=== PATIENT | male | born 2005 | race Hispanic/Latino ===

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

== ENCOUNTER 2025-10-14 19:30 | Emergency (ER) | payer BC, MEDICAID ==
[~2025-10-14] VITALS: Ht 172.7 cm; Wt 80.7 kg
--- NOTE | 2025-10-14 20:03 | ERN ---
ED Note History of Present Illness Stated Complaint: ABD PAIN, VOMITING, GBW, FEVER Chief Complaint: Sepsis Time Seen by MD: 19:33 Dictation: Patient is a 20-year-old with a past medical history asthma who presented to the ER complaining of not feeling well since to this morning, reports lower abdominal pain, tingling sensation to his foot bilateral. He also states that abdominal pain got worse when he laid down. Allergies: Coded Allergies: No Known Allergies (Unverified Allergy, Unknown, 10/04/21) Home Meds Active Scripts Ibuprofen (Ibuprofen) 400 Mg Tablet, 1 TAB PO TID for pain or fever for 20 Days, #15 TAB 0 Refills Prov:FRANCISCO HORNE MD 10/14/25 Acetaminophen (Tylenol) 325 Mg Tablet, 1-2 TAB PO QIDP PRN for pain or fever for 7 Days, #20 TAB 0 Refills Prov:FRANCISCO HORNE MD 10/14/25 Past Medical History Past Medical History: Asthma Surgical History: None Social History: Other Review of System Dictation NEGATIVE EXCEPT PER HPI Constitutional: Negative for fever,chills, and weight loss Eyes: Negative for injury, pain,redness, and discharge ENT: Negative for injury,pain or swelling Cardiovascular: denies chest pain, palpitations, and edema Respiratory: Negative for shortness of breath, cough, and wheezing, Abdomen/GI: Bilateral lower abdominal pain Back: Negative for injury and pain : Negative for injury, bleeding and discharge MS/Extremity: Negative for injury and deformity Skin: Negative for rash, and discoloration Neuro: Bilateral foot tingling Psych: Negative for suicide ideation, homicidal ideation, and hallucinations Initial Vital Sign VS Vital Signs Date Time Temp Pulse Resp B/P (MAP) Pulse Ox O2 Delivery O2 Flow Rate FiO2 10/14/25 19:31 100.2 106 26 122/75 99 Room Air 10/14/25 19:50 0 21 Physical Exam Dictation General: awake, alert, NAD Head/Face: Normocephalic, atraumatic Eyes: PERRL, EOMI, vision at baseline ENT: oral cavity clear, TMs clear, no signs of infection Neck: Trachea midline, supple, no nuchal rigidity Cardiovascular: RRR, normal S1/S2, No MRGs, no JVD Respiratory: CTAB, no respiratory distress, No rales or wheezes Abdomen: Soft , no tender Skin: Warm, dry, normal turgor, no rash MS/Extremity: Pulses equal, no cyanosis, neurovascular intact, FROM Neuro: COAx4, GCS 15, strength 5/5, CN 2-12 intact, normal cerebellar exam, normal gait, Psych: Normal behavior, mood, and affect normal Results (Laboratory/Radiology) Laboratory/Radiology Laboratory Tests Test 10/14/25 19:47 10/14/25 19:54 White Blood Count 13.6 K/uL (4.8-10.8) H Red Blood Count 5.61 MIL/uL (4.50-6.20) Hemoglobin 16.0 g/dL (14.0-18.0) Hematocrit 46.9 % (42-54) Mean Corpuscular Volume 83.6 fL (80-100) Mean Corpuscular Hemoglobin 28.5 pg (27.0-33.0) Mean Corpuscular Hemoglobin Concent 34.1 g/dL (32.0-36.0) Red Cell Distribution Width 12.3 % (11.0-15.5) Platelet Count 149 K/uL (130-400) Mean Platelet Volume 10.9 fL (7.5-10.5) H Immature Granulocyte % (Auto) 0.3 % (0-1) Neutrophils (%) (Auto) 93.0 % (40.0-77.0) H Lymphocytes (%) (Auto) 2.3 % (21.0-51.0) L Monocytes (%) (Auto) 3.7 % (3.0-13.0) Eosinophils (%) (Auto) 0.4 % (0.0-8.0) Basophils (%) (Auto) 0.3 % (0.0-5.0) Neutrophils # (Auto) 12.7 K/uL (1.8-7.7) H Lymphocytes # (Auto) 0.3 K/uL (1.0-4.8) L Monocytes # (Auto) 0.5 K/uL (0.1-1.0) Eosinophils # (Auto) 0.05 K/uL (0.00-0.70) Basophils # (Auto) 0.04 K/uL (0.00-0.20) Absolute Immature Granulocyte (auto 0.04 K/uL (0-1) Nucleated Red Blood Cells 0.0 % (0.0-0.19) White Cell Morphology Comment See comments Sodium Level 136 mmol/L (136-145) Potassium Level 3.8 mmol/L (3.5-5.1) Chloride Level 101 mmol/L (101-111) Carbon Dioxide Level 23 mmol/L (21-32) Blood Urea Nitrogen 17 mg/dL (7-18) Creatinine 1.1 mg/dL (0.5-1.3) Glomerular Filtration Rate Calc 99 mL/min (>90) Random Glucose 126 mg/dL (70-105) H Lactic Acid Level 2.5 mmol/L (0.8-2.5) Total Calcium 9.5 mg/dL (8.5-10.1) Total Creatine Kinase 845 U/L (21-232) *H Troponin I High Sensitivity < 4 ng/L (4-75) L Urine Color YELLOW (YELLOW) Urine Appearance CLEAR (CLEAR) Urine pH 6.0 (5.0-8.0) Urine Specific [place] 1.031 (1.001-1.031) Urine Protein NEGATIVE mg/dL (NEGATIVE) Urine Glucose (UA) NEGATIVE mg/dL (NEGATIVE) Urine Ketones 100 mg/dL (NEGATIVE) H Urine Occult Blood NEGATIVE (NEGATIVE) Urine Nitrate NEGATIVE (NEGATIVE) Urine Bilirubin NEGATIVE mg/dL (NEGATIVE) Urine Urobilinogen 0.2 mg/dL (0.2-1.0) Urine Leukocyte Esterase NEGATIVE Vivek/uL Urine RBC 0-1 /HPF (0-1) Urine WBC 2-5 /HPF (0-1) H Urine Bacteria None /HPF (None Seen) Influenza Type A Antigen Negative For Type A Influenza Type B Antigen Negative For Type B SARS-CoV-2 Antigen (Rapid) PRESUMPTIVE NEGATIVE ED Course ED Course Orders Procedure Category Date Status Time Iv Insertion CPOE 10/14/25 Transmitted 19:43 Pulse Ox(Continuous) RT 10/14/25 Transmitted 19:43 Vital Signs Per CPOE 10/14/25 Transmitted Routine 19:43 12 Lead Ekg Tracing- EKG 10/14/25 Complete Technical 19:43 Cbc With Differential LAB 10/14/25 Complete 19:43 Blood Cult KAITLIN 10/14/25 In Process 19:43 Urinalysis Profile LAB 10/14/25 Complete 19:43 Culture Urine KAITLIN 10/14/25 In Process 19:43 Creatine Kinase, Total LAB 10/14/25 Complete 19:43 Troponin I High LAB 10/14/25 Complete Sensitivity 19:43 Lactic Acid LAB 10/14/25 Complete 19:43 Basic Metabolic Panel LAB 10/14/25 Complete 19:43 0.9%Nacl 1000ml (Ns PHA 10/14/25 Complete 1000ml) 20:00 Influenza Type A & B, LAB 10/14/25 Complete Rapid 19:44 Covid19 (Sars Antigen LAB 10/14/25 Complete Rapid) 19:44 Chest 1vw RAD 10/14/25 Resulted 19:44 Ceftriaxone 1g Vial PHA 10/14/25 Complete (Rocephine 1g Inj) 20:00 Ct Abdomen/Pelvis CT 10/14/25 Resulted W/Contrast 20:03 Ketorolac PHA 10/14/25 Complete Tromethamine 15mg/Ml 20:30 Iohexol (Omnipaque) PHA 10/14/25 Complete 21:38 Lactic Acid (Removed) LAB 10/14/25 Logged 23:17 Current Medications Medications (Trade) Dose Ordered Sig/Nasreen Route PRN Reason Start Time Stop Time Status Last Admin Dose Admin Ceftriaxone Sodium (ROCEphine 1G INJ) 1 gm ONCE ONCE IVPB 10/14/25 20:00 10/14/25 20:01 DC 10/14/25 20:14 Iohexol (Omnipaque) 75 ml STK-MED ONCE IV 10/14/25 21:38 10/14/25 21:39 DC Ketorolac Tromethamine (toRADol) 15 mg ONCE ONCE IV 10/14/25 20:30 10/14/25 20:31 DC 10/14/25 20:58 Sodium Chloride 2,052 ml @ 684 mls/hr ONCE ONCE IV 10/14/25 20:00 10/14/25 22:59 DC 10/14/25 20:14 Vital Signs Date Time Temp Pulse Resp B/P (MAP) Pulse Ox O2 Delivery O2 Flow Rate FiO2 10/14/25 22:04 96 16 110/71 100 Room Air* 0 21 10/14/25 21:15 100 20 113/76 100 Room Air* 0 21 10/14/25 19:50 100.8 92 22 122/81 100 Room Air* 0 21 10/14/25 19:31 100.2 106 26 122/75 99 Room Air Medical Decision Making MDM 20-year-old male who presented with abdominal pain, not feeling well. Initial vital signs was remarkable for tachycardia with a heart rate above 100 temperature 100.2. Code sepsis was activated. Sepsis protocol started CT abdomen and pelvis ordered Chest x-ray ordered Ceftriaxone 1 g given. Chest x-ray within normal limits negative for pneumonia CT imaging abdomen and pelvis within normal limits negative for cholecystitis, appendicitis, planning patient vital signs improved. He is afebrile. Likely patient diagnosis viral syndrome . He does have elevation of CK level 800s, patient has been working out lately. Recommended the patient to rest, drink plenty amount of food to keep hydrated. DX & DISP Disposition: Discharge Departure Impression: Primary Impression: Acute viral syndrome Condition: Improved Scripts Ibuprofen (Ibuprofen) 400 Mg Tablet 1 TAB PO TID for pain or fever for 20 Days, #15 TAB 0 Refills Prov: FRANCISCO HORNE MD 10/14/25 Acetaminophen (Tylenol) 325 Mg Tablet 1-2 TAB PO QIDP PRN for pain or fever for 7 Days, #20 TAB 0 Refills Prov: FRANCISCO HORNE MD 10/14/25 Additional Instructions: RETURN TO ER FOR ANY ACUTE OR WORSENING SYMPTOMS. FOLLOW-UP IN 1-2 DAYS WITH PRIMARY PROVIDER FOR RECHECK OF TODAY'S SYMPTOMS. Referrals: SELF,REFERRAL (PCP) FRANCISCO HORNE MD Oct 14, 2025 20:03
[2025-10-14 20:05] LABS: IMMATURE GRANULOCYTE ABSOLUTE 0.04 K/uL (0-1); NUCLEATED RED BLOOD CELLS 0.0 % (0.0-0.19); PLATELET COUNT (AUTO) 149 K/uL (130-400); RED BLOOD CELL COUNT(AUTO) 5.61 MIL/uL (4.50-6.20); RED CELL DISTRIBUTION WIDTH 12.3 % (11.0-15.5); WHITE BLOOD COUNT (AUTO) 13.6 K/uL (4.8-10.8)
--- NOTE | 2025-10-14 20:05 | EKG ---
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
[2025-10-14] MEDS: 0.9%NACL 1000ML 2,052 ML IV ONE (20:14)
[2025-10-14 20:18] LABS: APPEARANCE,URINE CLEAR (CLEAR); GLUCOSE, URINE (UA) NEGATIVE (NEGATIVE); LEUKOCYTE ESTERASE ,URINE NEGATIVE Leu/uL (NEGATIVE); NITRATE,URINE NEGATIVE (NEGATIVE); OCCULT BLOOD,URINE NEGATIVE (NEGATIVE)
[2025-10-14 20:19] LABS: ADD UA MICROSCOPIC YES
[2025-10-14 20:29] LABS: COVID19 (SARS ANTIGEN RAPID) PRESUMPTIVE NEGATIVE (NEGATIVE); INFLUENZA TYPE A Negative For Type A (NEGATIVE); INFLUENZA TYPE B Negative For Type B (NEGATIVE)
[2025-10-14 20:32] LABS: CREATININE 1.1 mg/dL (0.5-1.3); GLOMERULAR FILTR. RATE CALC 99.0 mL/min (>90); GLUCOSE,RANDOM 126.0 mg/dL (70-105); SODIUM SERUM 136.0 mmol/L (136-145); UREA NITROGEN, BLOOD 17.0 mg/dL (7-18)
--- NOTE | 2025-10-14 20:53 | HMCIMG ---
EXAM: CR Chest, 1 View. CLINICAL HISTORY: sepsis COMPARISON: None provided. FINDINGS: LUNGS: The lungs show no infiltrate or other acute finding. PLEURAL SPACES: No evidence of pleural effusion or pneumothorax. MEDIASTINUM: Cardiac size and mediastinal contours within normal limits. BONES: No aggressive appearing osseous lesion seen. IMPRESSION: No acute cardiopulmonary pathology is evident. /[place]
[2025-10-14 21:23] LABS: CREATINE KINASE, TOTAL 845.0 U/L (21-232)
[2025-10-14] MEDS ORDERED: IOHEXOL-350 75 ML VIAL IV ONE (21:38)
--- NOTE | 2025-10-14 23:17 | HMCIMG ---
EXAM: CT Abdomen and Pelvis with IV contrast. CLINICAL HISTORY: Abdominal pain, possible appendicitis. TECHNIQUE: Axial computed tomography images of the abdomen and pelvis with intravenous contrast. CONTRAST: Omnipaque 350. COMPARISON: None provided. FINDINGS: LUNG BASES: The lung bases appear clear. No pleural effusions are seen. LIVER: Unremarkable. GALLBLADDER AND BILE DUCTS: The gallbladder appears within normal limits. No radioopaque gallstones are seen. No biliary ductal dilatation is evident. PANCREAS: Unremarkable. SPLEEN: Unremarkable. ADRENAL GLANDS: Unremarkable. KIDNEYS, URETERS, AND BLADDER: The kidneys appear within normal limits. There is no hydronephrosis or hydroureter. No urinary calculi are seen. STOMACH AND BOWEL: Unremarkable appearance of the stomach and bowel. No evidence of bowel obstruction. No evidence suggesting enteritis or colitis. APPENDIX: No evidence of appendicitis. PERITONEUM: No free fluid. No free air. LYMPH NODES: No lymphadenopathy is evident. REPRODUCTIVE: Unremarkable as visualized. VASCULATURE: No evidence of abdominal aortic aneurysm. BONES: No aggressive appearing osseous lesion. No acute osseous pathology is evident. IMPRESSION: No CT features of acute appendicitis. No acute intra-abdominal or pelvic abnormality. /[place]
[2025-10-14] MEDS ORDERED: IBUP-2076 PO (23:35)
[2025-10-14] MEDS ORDERED: ACET-2247 PO (23:35)
[2025-10-15 00:29] VITALS: BP 105/72; PULSE 70; RESP 16; TEMP 98.9; O2SAT 98
== END 2025-10-15 00:30 | disposition home or self-care (01) ==
LOC: EDH 19:30
DX: B34.9 Viral infection, unspecified (principal); Z20.822 Contact with and (suspected) exposure to COVID-19; J45.909 Unspecified asthma, uncomplicated; Z79.1 Long term (current) use of non-steroidal anti-inflammatories (NSAID); Z79.899 Other long term (current) drug therapy
CPT/HCPCS: 99284; 74177; 96365; 96361; 71045; 96375; 87426; 82550; 84484; 80048; 85025; 87040 ×2; 87086; 87804 ×2; 83605 ×2; 81001; 36415; 93005; J1885; J7030; J0696; Q9967